=== PATIENT | female | born 1955 | race Caucasian/White ===

== ENCOUNTER 2024-07-06 13:57 | Emergency (ER) | payer MEDICARE, BC, SELFPAY ==
[2024-07-06 14:01] VITALS: BP 110/74
--- NOTE | 2024-07-06 15:18 | ED.GENMED ---
History of Present Illness
General
Chief Complaint: Medication Reaction
Source: patient
Exam Limitations: none
Time Seen by Provider: 07/06/24 15:18
Nursing documentation reviewed up to this point in time: agreed with
History of Present Illness
History of Present Illness:
68 yo female w h/o Chow's Esophagus, R mastectomy, hypoparathyroidism, presents for bilateral eye pain with blurred vision, joint pain since yesterday, two days after receiving first dose of IV Reclast.
Initially eye aching pain was / yesterday, this has improved to 4/10 but today noted blurred vision bilaterally.
Called her [employer] and was told to expect some muscle and joint aches, rare but uveitis has been seen.
Not contact lens wearer, uses reading glasses only
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 Ram[facility]rez [facility] for a year. Has had no problems since.
Review of Systems
Review of Systems
Allergies reviewed?: Yes
All Other Systems: ROS reviewed and negative except as documented in HPI and ROS
Constitutional: Denies fever
EENT: Reports other (pain posterior eyes, blurred vision.)
Respiratory: Denies trouble breathing
Cardiac: Denies chest pain
ABD/GI: Denies abdominal pain, nausea or vomiting
Musculoskeletal: Reports joint pain and muscle pain
Skin: Reports no symptoms
Neurological: Reports no symptoms
Phy Exam
Physical Exam
Physical Exam:
GENERAL: No acute distress. A&Ox3.
CONSTITUTIONAL: Afebrile.
EYES: clear, conjunctivae normal, PERRLA, EOMs intact, good red reflex bilaterally, clear vitreous, sharp vessels, mild aching pain posterior eyes with palpation.
ENMT: moist mucus membranes, Pharynx nl
RESPIRATORY: Regular respirations, nonlabored, lungs clear.
CARDIOVASCULAR: Regular rate and rhythm, no murmurs, no rubs.
GI: Soft, nontender
MUSCULOSKELETAL: Moves with ease. Well perfused.
SKIN: Warm, dry, pink
PSYCH: Normal mood and affect. Well kept, interactive and appropriate
NEUROLOGIC: Awake, alert and oriented. No focal neurological deficits
Course
Orders/Labs/Results
Orders:
Orders
07/06/24 15:21
Visual Acuity- Treatment ONCE
Vital Signs
Initial and Last Documented VS:
Initial Vital Signs
Temp Pulse Resp BP Pulse Ox
97.9 F 65 18 110/74 99
07/06/24 14:01 07/06/24 14:01 07/06/24 14:01 07/06/24 14:01 07/06/24 14:01
Last Documented Vital Signs
Temp Pulse Resp BP Pulse Ox
97.9 F 65 18 110/74 99
07/06/24 14:01 07/06/24 14:01 07/06/24 14:01 07/06/24 14:01 07/06/24 14:01
MDM/Problems Addressed
Differential Diagnosis Includes:
anterior iritis vs posterior uveitis, medication side effect
MDM/Problems Addressed:
68 yo female w h/o Chow's Esophagus, R mastectomy, hypoparathyroidism, presents for bilateral eye pain with blurred vision, joint pain since yesterday, two days after receiving first dose of IV Reclast.
Initially eye aching pain was 9/19 yesterday, this has improved to 4/10 but today noted blurred vision bilaterally.
Called her [employer] and was told to expect some muscle and joint aches, rare but uveitis has been seen.
Not contact lens wearer, uses reading glasses only
No infectious symptoms, no recent illness
Pt had anterior uveitis 6 yrs ago and was worked up for sarcoid (neg), given steroids and followed by Dr. Ram[facility]rez [facility] for a year. Has had no problems since.
According to [employer]:
Possible side effect:
Ophthalmic: Eye pain (<=%), iritis (1%), uveitis (1%), post marketing: Ophthalmic: Blurred vision, conjunctivitis, iridocyclitis, periorbital edema, periorbital swelling, scleritis (including episcleritis)
Pt states current symptoms are similar but without the redness of the eyes, no significant pain, not likely anterior uveitis.
Most likely posterior uveitis
Visual acuity 20/40 each eye, 20/30 both eyes
Consulted [employer] Dr. Souza case discussed, knowing visual acuity and pain improving, she will fit pt in on Monday (2 days)
Recommends Advil and artificial tears in meantime
Return instruction discussed with pt. and
She is comfortable with this plan
*Critical Care Note
Total Time (30-74mins, 75-104mins- exclusive of procedures): Not Applicable
ED Attending Note
-
Portions of this chart may have been created with voice recognition software.� Occasional wrong word or��sound alike� substitutions may have occurred due to the inherent limitations of voice recognition software.
Discharge Plan
Departure
Patient Disposition: Home (Routine Discharge)
Date of Disposition: 07/06/24
Time of Disposition: 16:36
Patient with high blood pressure during this ER visit?: No
Condition: Good
Discharge Problem:
Pain of both eyes, Body aches, Blurred vision, bilateral, Medication side effects
Instructions: Uveitis, Side effects from medicines
Referrals:
Devan Zimmerman DO [Family Provider] -
Nimo Marinelli MD [Active] - Call in 1-3 days for appt
Activity Restrictions/Additional Instructions:
As we discussed, I spoke with Dr. Kirby who states she will see you Monday. Call the office first thing Monday a.m.
She recommends Advil and artificial tears in the meantime.
Return here immediately for any loss of vision, worsening pain or anything that concerns you.
Interventions
Interventions:
*Risk Screen - Suicide Last Done: 07/06/24 14:01
*General Assessment Last Done: 07/06/24 14:01
*Nursing Disposition Last Done: 07/06/24 17:02
ED-Skin Assessment Last Done: 07/06/24 15:54
ED- Pulmonary Assessment Last Done: 07/06/24 15:53
ED-EENT Assessment Last Done: 07/06/24 15:53
Discharge Date and Time
Discharge Date/Time: 07/06/24 17:02
Print Language: MICRONESIAN
== END 2024-07-06 17:02 | disposition home or self-care (01) ==
LOC: EMR 13:57
PROVIDERS: EMERGENCY PHYSICIAN Emergency Medicine; FAMILY PHYSICIAN Family Medicine
DX: H57.13 Ocular pain, bilateral (principal); H53.8 Other visual disturbances; T50.995A Adverse effect of other drugs, medicaments and biological substances, initial encounter; E20.9 Hypoparathyroidism, unspecified; Z87.19 Personal history of other diseases of the digestive system; Z90.11 Acquired absence of right breast and nipple
CPT/HCPCS: 99283